=== PATIENT | male | born 1995 | race African-American/Black ===

== ENCOUNTER 2024-09-17 10:35 | Emergency (ER) | payer SELFPAY ==
[~2024-09-17] VITALS: Ht 177.8 cm; Wt 117.0 kg
[2024-09-17 11:22] VITALS: O2SAT 98
[2024-09-17] MEDS: IBUPROFEN 600MG TABLET PO ONE (11:45)
[2024-09-17 12:56] VITALS: BP 130/85; PULSE 85; RESP 12; TEMP 36.7; O2SAT 98
== END 2024-09-17 12:57 | disposition home or self-care (01) ==
LOC: ER 10:35
DX: J06.9 Acute upper respiratory infection, unspecified (principal)
CPT/HCPCS: 99282